=== PATIENT | female | born 1965 | race Caucasian/White ===

== ENCOUNTER 2022-09-12 12:17 | Outpatient (CLI) | payer BC | END 2022-09-12 12:18 | disposition home or self-care (01) | LOC: CSHMAMMO 12:17 | PROVIDERS: ATTEND Nurse Practitioner Family | DX: Z12.31 Encounter for screening mammogram for malignant neoplasm of breast (principal); N63.15 Unspecified lump in the right breast, overlapping quadrants | CPT/HCPCS: 77063; 77067 ==